=== PATIENT | female | born 1955 | race Caucasian/White ===

== ENCOUNTER 2021-08-12 13:13 | Inpatient (IN) | payer MEDICARE, SELFPAY ==
[2021-08-12] VITALS (22 sets, daily range): BP systolic 164–249; BP diastolic 80–146; PULSE 88–114; RESP 10–24; TEMP 36.3–37.2; O2SAT 97–100; BMI 21.2
--- NOTE | ~2021-08-12 | US_ITS ---
EXAMINATION: US retroperitoneal duplex ltd DATE: 08/12/2021 19:06 INDICATION: hypertension TECHNIQUE: Multiple grayscale, color Doppler, and pulsed Doppler images of the kidneys and renal sarah reji were obtained. COMPARISON: None. FINDINGS: The aorta peak systolic velocity is 117 cm/s. The right renal artery peak systolic velocity is 214 cm /s in the proximal segment, 101 cm/s in the mid segment, and 66 cm/s in the distal segment. The left renal artery peak systolic velocity is 122 cm/s in the proximal segment, 173 cm/s in the mid segment, and 54 cm/s in the distal segment. IMPRESSION: 1. Elevated peak systolic velocities in the proximal right renal artery consistent with >50-60% sten osis. Reviewed, dictated and finalized at location A. IMPRESSION: 1. Elevated peak systolic velocities in the proximal right renal artery consis tent with >50-60% stenosis.
--- NOTE | 2021-08-12 13:48 | ECG_ITS ---
Measurements Intervals [place] Rate: 102 P: 50 VT: 130 QRS: -1 QRSD: 136 T: 127 QT: 390 QTc: 509 Interpretive Statements SINUS TACHYCARDIA LEFT ATRIAL ENLARGEMENT LEFT BUNDLE BRANCH BLOCK BASELINE ARTIFACT- I, II, AVR, AVL ABNORMAL ECG Electronically Signed On 08-12-2021 14:25:28 CDT by Eduardo Donato D.O.
[2021-08-12 14:58] LABS: Basophils Percent Auto 0.4 % (0.2-1.2); Eosinophils Absolute Auto 0.3 K/mm3 (0-0.3); Eosinophils Percent Auto 3.1 % (0-4.4); Hematocrit 50.9 % (37.0-47.0); Hemoglobin 16.3 g/dL (12.0-15.0); Immature Granulocyte Absolute 0.01 K/mm3 (0.00-0.031); Immature Granulocyte Percent A 0.1 % (0-0.5); Lymphocytes Absolute Auto 1.46 K/mm3 (0.9-3.2); Lymphocytes Percent Auto 16.1 % (18.3-44.2); Mean Corpuscular Hemoglobin 30.2 pg (26-34); Mean Corpuscular Volume 94.4 fl (80-100); Mean Platelet Volume 10.8 fl (7.4-10.4); Monocytes Absolute Auto 0.9 K/mm3 (0.1-0.6); Monocytes Percent Auto 9.9 % (2.6-8.5); Neutrophils Absolute Auto 6.4 K/mm3 (1.3-6.7); Neutrophils Percent Auto 70.4 % (45.5-73.1); Platelet Count Result 211 k/mm3 (150-375); Red Blood Count 5.39 M/mm3 (4.2-5.4); Red Cell Distribution Width 12.4 % (11.5-14.5); White Blood Count 9.1 K/mm3 (4.5-10.0)
[2021-08-12 15:08] LABS: Alanine Aminotransferase 23 U/L (4-35); Albumin Level 4.6 g/dL (3.5-5.1); Alkaline Phosphatase 108 U/L (38-126); Anion Gap 7 mmol/L (8-16); Aspartate Amino Transferase 24 U/L (14-36); Bilirubin,Total 0.3 mg/dL (0.2-1.3); Blood Urea Nitrogen 13 mg/dL (7-17); Calcium 9.4 mg/dL (8.4-10.2); Carbon Dioxide 31 mmol/L (22-30); Chloride 100 mmol/L (98-107); Estimated CRCL calculation 54 ml/min; Estimated Glomerular Filt Rate > 60; Glucose 127 mg/dL (65-110); Potassium 3.6 mmol/L (3.4-5.0); Sodium 138 mmol/L (137-145)
[2021-08-12] MEDS: hydrALAZINE HCL 20 MG/ML VIAL 10 MG IV PUSH ×2 (15:21→19:22)
--- NOTE | 2021-08-12 15:25 | ED.GENADULT ---
HPI - General Adult General Chief complaint: Recheck/Abnormal Lab/Rx Stated complaint: htn Time Seen by Provider: 08/12/21 14:53 Source: patient Mode of arrival: ambulatory Limitations: no limitations History of Present Illness HPI narrative: 66-year-old female with no significant past medical history presenting to the emergency department for evaluation of high blood pressure. Patient was at her dentist office today when they noticed that she had a significantly elevated blood pressure that was in the 250/150 range. Patient had recently been at the dentist office on August 02 and had a systolic blood pressure of 110. Patient has no prior history of hypertension. Patient denies any change in medications denies any herbal supplements and denies any increased caffeine intake today. Patient is also asymptomatic with his blood pressure. Patient denies any headache, chest pain, chest tightness. Related Data Home Medications Medication Instructions Recorded Confirmed No Home Medications 08/12/21 08/12/21 Allergies Allergy/AdvReac Type Severity Reaction Status Date / Time No Known Allergies Allergy Verified 08/12/21 14:50 Review of Systems Review of Systems: CONSTITUTIONAL: Denies fever, chills, or sweats. EYES: Denies visual changes, redness, or discharge. ENT: Denies rhinorrhea, congestion, sore throat, or otalgia. CARDIOVASCULAR: Denies chest pain, palpitations, or edema. RESPIRATORY: Denies cough or dyspnea. GASTROINTESTINAL: Denies abdominal pain, nausea, vomiting, or diarrhea. GENITOURINARY: Denies dysuria or hematuria. SKIN: Denies rash or itching. MUSCULOSKELETAL: Denies back pain, joint pain, or myalgia. NEUROLOGIC: Denies headache, numbness, or weakness. Exam Narrative: APPEARANCE: Well appearing, no pain, no distress, well-nourished. HEAD: normocephalic, atraumatic. EYES: PERRLA/EOMI, conjunctivae clear. NOSE: Normal no drainage THROAT: Pharynx clear, no exudate. NECK: Supple. No adenopathy, no masses. RESPIRATORY: Airway patent, respirations nonlabored. Clear to auscultation bilaterally, no rales, rhonchi, wheezing. CARDIOVASCULAR: Regular rate and rhythm without murmurs rubs or gallops. ABDOMINAL: Soft, nontender, nondistended, normal bowel sounds MUSCULOSKELETAL: Moves all extremities. Strength/ROM intact, No edema, No calf tenderness. NEURO: Alert. Cranial nerves II through XII intact. Good gait. Good coordination SKIN: Warm, dry. Normal Color PSYCHIATRIC: Normal affect/mood. Course Course Emergency Course: Patient's blood pressure did improve with hydralazine. Case is being admitted for hypertensive urgency. Case was discussed with the hospitalist, Dr. Gaffney and patient was admitted to [facility] telemetry. Vital Signs Vital signs: Vital Signs Temperature 98.9 F 08/12/21 13:45 Pulse Rate 114 H 08/12/21 13:45 Respiratory Rate 19 08/12/21 13:45 Blood Pressure 249/146 H 08/12/21 13:45 Pulse Oximetry 99 08/12/21 13:45 Temperature 98.9 F 08/12/21 13:45 Pulse Rate 100 08/12/21 19:20 Respiratory Rate 18 08/12/21 19:20 Blood Pressure 164/106 H 08/12/21 19:20 Pulse Oximetry 98 08/12/21 19:20 Medical Decision Making Vital Signs Vital Signs: Vital Signs Temperature 98.9 F 08/12/21 13:45 Pulse Rate 114 H 08/12/21 13:45 Respiratory Rate 19 08/12/21 13:45 Blood Pressure 249/146 H 08/12/21 13:45 Pulse Oximetry 99 08/12/21 13:45 Temperature 98.9 F 08/12/21 13:45 Pulse Rate 100 08/12/21 19:20 Respiratory Rate 18 08/12/21 19:20 Blood Pressure 164/106 H 08/12/21 19:20 Pulse Oximetry 98 08/12/21 19:20 Lab Data Lab results reviewed: Yes I reviewed the patient's lab results. Result diagrams: 08/12/21 14:51 08/12/21 14:51 Labs: Lab Results 08/12/21 08/12/21 08/12/21 Range/Units 14:51 14:51 14:51 WBC 9.1 (4.5-10.0) K/mm3 RBC 5.39 (4.2-5.4) M/mm3 Hgb 16.3 H (12.0-15.0) g/dL Hct 50.9 H (37.0-4
[2021-08-12 15:38] LABS: Appearance Urine Clear (Clear); Bilirubin Urine Negative (Negative); Blood Urine Negative (Negative); Color Urine Yellow (Yellow); Glucose Urine UA Negative (Negative); Ketones Urine Negative (Negative); Leukocyte Esterase Ur Negative LEU/UL (Negative); Nitrate Urine Negative (Negative); Protein Urine Negative (Negative); Specific Grav Ur 1.015 (1.001-1.035); Urobilinogen Urine 0.2 mg/dL (<2.0); pH Urine 7.5 (5.0-9.0)
[2021-08-12 15:47] LABS: Add Urine Microscopic? NO
[2021-08-12 15:54] LABS: Troponin I 0.022 ng/mL (0.000-0.034)
[2021-08-12] MEDS: amLODIPine BESYLATE 5 MG TABLET PO (17:22)
--- NOTE | 2021-08-12 17:37 | PM.IMHP ---
H&P: HPI History of Present Illness Date/Time: 08/12/21 17:37 ED- HPI narrative: 66-year-old female with no significant past medical history presenting to the emergency department for evaluation of high blood pressure. Patient was at her dentist office today when they noticed that she had a significantly elevated blood pressure that was in the 250/150 range. Patient had recently been at the dentist office on August 02 and had a systolic blood pressure of 110. Patient has no prior history of hypertension. Patient denies any change in medications denies any herbal supplements and denies any increased caffeine intake today. Patient is also asymptomatic with his blood pressure. Patient denies any headache, chest pain, chest tightness. interval history patient seen in emergency depart and discussed with Dr. Chase, and seen the patient together, patient was given hydralazine 10 mg IV did bring her blood pressure slightly down will start the patient on amlodipine 5 mg q.day, patient remains clinically stable denies complaint of headache blurry vision chest pain or palpitation, patient does states she is anxious all the time, to further evaluate will do the cardia enzymes 1st set is negative, and no acute changes on EKG, will do the kidney ultrasound, will do cardiac echo, patient may need further workup after review of current results incoming hospitalist may decide further workup tomorrow. patient admitted as observation status Chief Complaint: hypertensive urgency Review of Systems Review of Systems: All systems reviewed & are unremarkable except as noted in HPI and below Meds Home Medications and Allergies Home Medications Medication Instructions Recorded Confirmed Type No Home Medications 08/12/21 08/12/21 History Allergies Allergy/AdvReac Type Severity Reaction Status Date / Time No Known Allergies Allergy Verified 08/12/21 14:50 Vital Signs Vital Signs - 24 hr 08/12/21 13:45 08/12/21 14:41 08/12/21 14:42 Temperature 98.9 F Pulse Rate 114 H 102 H 96 Respiratory Rate 19 14 19 Blood Pressure 249/146 H 249/116 H Pulse Oximetry 99 98 99 08/12/21 14:45 08/12/21 14:46 08/12/21 14:47 Temperature Pulse Rate 100 103 H 99 Respiratory Rate 12 10 L 22 H Blood Pressure 248/141 H Pulse Oximetry 100 98 99 08/12/21 15:01 08/12/21 15:16 08/12/21 15:17 Temperature Pulse Rate 90 88 96 Respiratory Rate 22 H 21 H 24 H Blood Pressure 218/107 H Pulse Oximetry 99 97 98 08/12/21 15:32 08/12/21 15:45 08/12/21 15:56 Temperature Pulse Rate 98 94 100 Respiratory Rate 24 H 23 H 24 H Blood Pressure 210/100 H Pulse Oximetry 100 99 98 08/12/21 16:04 08/12/21 16:19 08/12/21 16:30 Temperature Pulse Rate 97 98 94 Respiratory Rate Blood Pressure 192/86 H Pulse Oximetry 98 98 98 08/12/21 16:46 08/12/21 16:48 Temperature Pulse Rate 95 96 Respiratory Rate Blood Pressure 191/85 H Pulse Oximetry 97 98 Exam Narrative: Patient is comfortable, NAD HEENT: eyes are clear and none icteric LUNGS:CTA HEART: RR S1S2 ABD: BS+, Soft and nontender Lower extremities: no edema SKIN: nonjaundiced Neuro: grossly intact. H&P: Results Labs Labs: Short CBC 08/12/21 Range/Units 14:51 WBC 9.1 (4.5-10.0) K/mm3 Hgb 16.3 H (12.0-15.0) g/dL Hct 50.9 H (37.0-47.0) % Plt Count 211 (150-375) k/mm3 BMP 08/12/21 14:51 Sodium 138 Potassium 3.6 Chloride 100 Carbon Dioxide 31 H BUN 13 Creatinine 0.70 Glucose 127 H Calcium 9.4 Cardiac Enzymes 08/12/21 Range/Units 14:51 Troponin I 0.022 (0.000-0.034) ng/mL Liver Function 08/12/21 Range/Units 14:51 Total Bilirubin 0.3 (0.2-1.3) mg/dL AST 24 (14-36) U/L ALT 23 (4-35) U/L Alkaline Phosphatase 108 (38-126) U/L Albumin 4.6 (3.5-5.1) g/dL Urine 08/12/21 Range/Units 15:31 Urine Color Yellow (Yellow) Urine Appearance Clear (Clear) Urine pH
--- NOTE | 2021-08-12 20:15 | ADMGEN ---
This patient, Margaux Andrea, was admitted to Medical Room 346-01. Patient/family oriented to hospital policies and general routines including ID bracelet, bed and alarms, visiting hours, pain management, procedures, bathroom and other care routines, personal items, smoking policy, room service/diet, and visiting hours. Information on how to activate the Rapid Response Team has been discussed. Patient/Family are encouraged to report perceived risks to care and to ask questions if they do not understand what they are told or what they should do.
[2021-08-12] MEDS: LABETALOL HCL INJ 100 MG/20 ML VIAL 10 MG IV PUSH (21:51)
[2021-08-13] VITALS (12 sets, daily range): BP systolic 158–180; BP diastolic 69–88; PULSE 78–97; RESP 18–20; TEMP 36.6–37.4; O2SAT 96–98
--- NOTE | 2021-08-13 | ECHO_ITS ---
Patient Info Name: Margaux Andrea Age: 66 years : 1955 Gender: Female Ht: 62 in Wt: 110 lbs BSA: 1.48 m2 HR: 90 bpm BP: 158 / 69 mmHg Exam Date: 08/13/2021 10:35 AM Exam Location: [facility] Pulmonary Patient Status: Inpatient Admit Date: 08/12/2021 Staff Ordering Physician: Ish Gaffney MD Pad Hand: Didier Seay RDCS, RT Attending Provider: Ish Gaffney MD Exam Type: CA echo doppler color flow Study Info Indications I11.0 - Hypertensive heart disease with heart failure Complete two-dimensional, color flow and Doppler transthoracic echocardiogram is performed. Strain analysis performed. Summary 1. Complete two-dimensional, color flow and Doppler transthoracic echocardiogram is performed. 2. Normal LV size, mild LVH, normal LV systolic function, ejection fraction 65-70%, grade 1 diastolic dysfunction. No significant valvular abnormality. Unable to assess RVSP due to inadequate TR jet. Sinus rhythm. Left Ventricle Left ventricular chamber dimension is normal. Left ventricular systolic function is normal, estimated at 65-70%. There is mildly increased left ventricular wall thickness. Left ventricular septal wall motion is normal. The left ventricular diastolic function is grade I diastolic dysfunction. Right Ventricle Right ventricular chamber dimension is normal. Right ventricular systolic function is normal. Left Atria Left atrial chamber dimension is normal. Right Atria Right atrial chamber dimension is normal. Aortic Valve The aortic valve is normal. There is no aortic valve stenosis. There is no aortic valve regurgitation. Pulmonic Valve The pulmonic valve is not well visualized. Mitral Valve The mitral valve has normal leaflets. There is no mitral valve regurgitation. Tricuspid Valve The tricuspid valve leaflets are normal. There is no tricuspid valve regurgitation. Pericardium/Pleural The pericardium appears normal. There is no pericardial effusion. Aorta The aortic root size at the sinus of Valsalva is normal. Left Ventricular Outflow Tract Name Value Normal LVOT 2D LVOT Diameter 1.9 cm LVOT Doppler LVOT Peak Gradient 5 mmHg LVOT Mean Gradient 3 mmHg LVOT VTI 18 cm LVOT VTI/AV VTI Ratio 0.7 LVOT Stroke Volume 52 ml LVOT CO 5.2 l/min LVOT CI 3.5 l/min/m2 Mitral Valve Name Value Normal MV Doppler MV Decel Gooding 437 cm/s2 MV PHT 50 ms MV Area (PHT) 4.4 cm2 4.0-5.0 MV Diastolic Function MV E Peak Velocity 75
[2021-08-13 06:13] LABS: Basophils Absolute Auto 0.1 K/mm3 (0.0-0.1); Basophils Percent Auto 0.7 % (0.2-1.2); Eosinophils Absolute Auto 0.2 K/mm3 (0-0.3); Eosinophils Percent Auto 2.5 % (0-4.4); Hematocrit 47.3 % (37.0-47.0); Hemoglobin 15.5 g/dL (12.0-15.0); Immature Granulocyte Absolute 0.03 K/mm3 (0.00-0.031); Immature Granulocyte Percent A 0.4 % (0-0.5); Lymphocytes Percent Auto 19.7 % (18.3-44.2); Mean Corpuscular HGB Conc 32.8 g/dl (32-36); Mean Corpuscular Hemoglobin 30.5 pg (26-34); Mean Corpuscular Volume 92.9 fl (80-100); Mean Platelet Volume 11.5 fl (7.4-10.4); Monocytes Percent Auto 13.5 % (2.6-8.5); Neutrophils Absolute Auto 4.5 K/mm3 (1.3-6.7); Neutrophils Percent Auto 63.2 % (45.5-73.1); Platelet Count Result 233 k/mm3 (150-375); Red Blood Count 5.09 M/mm3 (4.2-5.4); Red Cell Distribution Width 12.5 % (11.5-14.5); White Blood Count 7.1 K/mm3 (4.5-10.0)
[2021-08-13 06:22] LABS: Alanine Aminotransferase 23 U/L (4-35); Albumin Level 4.1 g/dL (3.5-5.1); Alkaline Phosphatase 95 U/L (38-126); Anion Gap 8 mmol/L (8-16); Aspartate Amino Transferase 28 U/L (14-36); Bilirubin,Total 0.5 mg/dL (0.2-1.3); Blood Urea Nitrogen 10 mg/dL (7-17); Carbon Dioxide 30 mmol/L (22-30); Chloride 100 mmol/L (98-107); Estimated CRCL calculation 55 ml/min; Estimated Glomerular Filt Rate > 60; Glucose 110 mg/dL (65-110); Magnesium 2.2 mg/dL (1.6-2.3); Potassium 3.4 mmol/L (3.4-5.0); Sodium 138 mmol/L (137-145)
[2021-08-13] MEDS: amLODIPine BESYLATE 5 MG TABLET PO (08:06)
--- NOTE | 2021-08-13 10:59 | PM.IMPN ---
Progress Note: A&P Assessment and Plan (1) Hypertensive urgency: Code(s): I16.0 - Hypertensive urgency Status: Acute Assessment and Plan: Blood pressure improved Renal artery Doppler shows stenosis 50-60% Cardiology consult Added extra dose of amlodipine 2.5 mg today Subjective Date/time seen: 08/13/21 10:59 Interval history: 66 years old female presented to the hospital with elevated blood pressure last time patient measured her blood pressure was few years ago patient did not follow-up with her primary care physician for 4-5 years Arterial Doppler of renal arteries shows 50-60% stenosis Patient feels better today blood pressure improved Patient denies fever headache chest pain shortness of breath I am seeing the patient for hypertension Exam Narrative: Alert Chest no wheeze crackles Abdomen nontender nondistended CVS S1 + S2 Lower extremity edema Objective Data Vital Signs Vital Signs: Vital Signs - 24 hr 08/12/21 13:45 08/12/21 14:41 08/12/21 14:42 Temperature 98.9 F Pulse Rate 114 H 102 H 96 Respiratory Rate 19 14 19 Blood Pressure 249/146 H 249/116 H Pulse Oximetry 99 98 99 08/12/21 14:45 08/12/21 14:46 08/12/21 14:47 Temperature Pulse Rate 100 103 H 99 Respiratory Rate 12 10 L 22 H Blood Pressure 248/141 H Pulse Oximetry 100 98 99 08/12/21 15:01 08/12/21 15:16 08/12/21 15:17 Temperature Pulse Rate 90 88 96 Respiratory Rate 22 H 21 H 24 H Blood Pressure 218/107 H Pulse Oximetry 99 97 98 08/12/21 15:32 08/12/21 15:45 08/12/21 15:56 Temperature Pulse Rate 98 94 100 Respiratory Rate 24 H 23 H 24 H Blood Pressure 210/100 H Pulse Oximetry 100 99 98 08/12/21 16:04 08/12/21 16:19 08/12/21 16:30 Temperature Pulse Rate 97 98 94 Respiratory Rate Blood Pressure 192/86 H Pulse Oximetry 98 98 98 08/12/21 16:46 08/12/21 16:48 08/12/21 17:34 Temperature Pulse Rate 95 96 106 H Respiratory Rate 16 Blood Pressure 191/85 H 198/90 H Pulse Oximetry 97 98 99 08/12/21 19:20 08/12/21 20:00 08/12/21 20:23 Temperature 97.4 F L Pulse Rate 100 94 102 H Respiratory Rate 18 18 Blood Pressure 164/106 H 182/80 H Pulse Oximetry 98 100 08/12/21 21:51 08/13/21 00:00 08/13/21 01:45 Temperature Pulse Rate 102 H 87 Respiratory Rate Blood Pressure 170/78 H Pulse Oximetry 08/13/21 04:00 08/13/21 04:21 08/13/21 08:00 Temperature 99.3 F Pulse Rate 88 85 97 Respiratory Rate 18 Blood Pressure 158/69 H Pulse Oximetry 96 96 Intake/Output Intake/Output: Intake & Output 08/10/21 08/11/21 08/12/21 08/13/21 23:59 23:59 23:59 23:59 Intake Total 660 Output Total 650 Balance 10 Meds/Results Medications: Active Medications Generic Name Dose Route Start Last Admin Trade Name Freq PRN Reason Stop Dose Admin Amlodipine Besylate 5 mg 08/13/21 09:00 08/13/21 08:06 Amlodipine Besylate 5 Mg Tablet PO 5 mg QAM KAYLI Administration Hydralazine HCl 10 mg 08/12/21 17:47 Hydralazine 10 Mg Tablet PO QID PRN Blood Pressure - High keep Labetalol HCl 10 mg 08/12/21 21:32 08/12/21 21:51 Labetalol Hcl Inj 100 Mg/20 Ml Vial IV PUSH 10 mg Q6HR PRN Administration Hypertension Miscellaneous Information 0 each 08/12/21 00:01 Clarify What Bp Is High Requiring Po Apresoline To Be Given XX 09/11/21 00:00 CLARIFY KAYLI Perflutren Lipid Microsphere 0 ml 08/12/21 17:44 Perflutren Lipid Microspheres 1.5 Ml Vial Diluted To 10 Ml Total Volume IV PUSH ONCE PRN adequate visualization Protocol Radiology Results: ITS Impressions Arterial/Peripheral Duplex 08/13/21 06:47 IMPRESSION: 1. Elevated peak systolic velocities in the proximal right renal artery consistent with >50-60% stenosis. Labs Labs: Laboratory Results - last 24 hr 08/12/21 08/12/21 08/12/21 14:51 14:51 14:51 WBC 9.1 RBC 5.39 Hgb 16.3 H Hct 5
[2021-08-13] MEDS: amLODIPine BESYLATE 2.5 MG TABLET PO (11:24)
[2021-08-13 14:30] LABS: Cortisol Random 7.92 ug/dL
--- NOTE | 2021-08-13 15:07 | PM.CNCAR ---
Assessment and Plan Assessment and plan (1) Hypokalemia: Code(s): E87.6 - Hypokalemia Status: Acute Assessment and Plan: May be related to hyperaldosterone state. Check a renin/aldosterone levels /ratio KCL 40 mg p.o. x1 (2) Renal artery stenosis: Code(s): I70.1 - Atherosclerosis of renal artery Status: Acute Assessment and Plan: she has unilateral renal artery stenosis which does not appear to be obstructive. Typically speaking, unilateral renal artery stenosis does not cause significantly high blood pressure. It needs to be bilateral to cause secondary hypertension. Because the renal artery stenosis, low-dose aspirin would be advised. Statin would also be advised this could be added as an outpatient. No intervention needed (3) Hypertensive urgency: Code(s): I16.0 - Hypertensive urgency Status: Acute Assessment and Plan: Continue amlodipine. Will add carvedilol 3.125 mg p.o. b.i.d.. As long as her blood pressure is reasonably controlled and she remains asymptomatic, she can go home today and follow up with me in the office in 1-2 weeks. Home blood pressure monitoring is encouraged and her is at bedside who understands these recommendations. She also has an appointment to see Dr. Musa in 1 week (4) Former smoker: Code(s): Z87.891 - Personal history of nicotine dependence Status: Acute Assessment and Plan: continue to avoid History of Present Illness History of Present Illness Consult date/time: 08/13/21 15:07 Requesting physician: Mazin Bland M.A., MD Consult reason: hypertension and Other (Renal artery stenosis) Reason For Visit: HTN urgency Narrative: requesting provider: Dr. Bland Date of service 08/13/2021 Reason consultation: Hypertensive urgency, renal artery stenosis History: Patient is a 66-year-old female who does not have a primary care provider. She is not routinely seen a doctor since around 2007. She does not carry a any specific diagnoses. She does not take medications except for p.r.n. Aleve. She was at the dentist yesterday and her blood pressure was 250/150. She was asymptomatic because of her markedly elevated blood pressure was told to go to the emergency department further workup evaluation and treatment. She was started on amlodipine and was given IV medications including hydralazine and labetalol. IV labetalol did drop her blood pressure nicely. She denies any chest pain, shortness of breath, syncope, presyncope, paroxysmal nocturnal dyspnea, orthopnea, edema or palpitations. The process of workup, she had a bilateral ultrasound which showed a modest stenosis of the right renal artery and no obstructive disease in the left renal artery Review of Systems Review of Systems: All systems reviewed & are unremarkable except as noted in HPI and below Constitutional: Constitutional: Denies weakness Eyes: Eyes: Denies blurry vision ENT: Reports Normal hearing present Cardiovascular: Cardiovascular: Denies chest pain Respiratory: Respiratory: Denies dyspnea Gastrointestinal: Gastrointestinal: Denies abdominal pain Genitourinary: Genitourinary: Denies flank pain Musculoskeletal: Musculoskeletal: Denies neck pain Integumentary/Breasts: Skin/Breast: Denies dry skin Neurologic: Denies headache(s) Psychiatric: Psychiatric: Denies anxiety Endocrine: Endocrine: Denies excessive sweating Hematologic/Lymphatic: Hematologic/Lymphatic: Denies easy bleeding Allergic/Immunologic: Allergic/Immunologic: Denies GI upset with certain foods PMFSH Past Medical History Medical History (Updated 08/13/21 @ 15:12 by Sanya Del Angel MD) Former smoker Renal artery stenosis Family History Family History (Updated 08/13/21 @ 15:10 by Sanya Del Angel MD) Mother Alzheimer's dementia Social History Social History Smoking packs per day: 1 Smoking cigarettes per day:
[2021-08-13] MEDS: POTASSIUM CHLORIDE 20 MEQ TABLET 40 MEQ PO (16:31)
[2021-08-13] MEDS: carvediloL 3.125 MG TABLET PO ×2 (16:32→21:14)
[2021-08-14] VITALS (8 sets, daily range): BP systolic 182–188; BP diastolic 90–98; PULSE 79–85; RESP 16; TEMP 37; O2SAT 95
[2021-08-14 06:19] LABS: Basophils Percent Auto 0.7 % (0.2-1.2); Eosinophils Absolute Auto 0.4 K/mm3 (0-0.3); Eosinophils Percent Auto 6.4 % (0-4.4); Hematocrit 49.2 % (37.0-47.0); Hemoglobin 15.2 g/dL (12.0-15.0); Immature Granulocyte Absolute 0.02 K/mm3 (0.00-0.031); Immature Granulocyte Percent A 0.3 % (0-0.5); Lymphocytes Absolute Auto 1.97 K/mm3 (0.9-3.2); Mean Corpuscular HGB Conc 30.9 g/dl (32-36); Mean Platelet Volume 11.4 fl (7.4-10.4); Monocytes Absolute Auto 0.9 K/mm3 (0.1-0.6); Monocytes Percent Auto 16.1 % (2.6-8.5); Neutrophils Absolute Auto 2.5 K/mm3 (1.3-6.7); Neutrophils Percent Auto 42.5 % (45.5-73.1); Platelet Count Result 235 k/mm3 (150-375); Red Blood Count 5.07 M/mm3 (4.2-5.4); Red Cell Distribution Width 12.8 % (11.5-14.5); White Blood Count 5.8 K/mm3 (4.5-10.0)
[2021-08-14 06:33] LABS: Alanine Aminotransferase 22 U/L (4-35); Albumin Level 3.8 g/dL (3.5-5.1); Alkaline Phosphatase 81 U/L (38-126); Anion Gap 3 mmol/L (8-16); Aspartate Amino Transferase 24 U/L (14-36); Bilirubin,Total 0.4 mg/dL (0.2-1.3); Blood Urea Nitrogen 14 mg/dL (7-17); Calcium 9.2 mg/dL (8.4-10.2); Carbon Dioxide 31 mmol/L (22-30); Chloride 103 mmol/L (98-107); Estimated CRCL calculation 43 ml/min; Estimated Glomerular Filt Rate > 60; Glucose 100 mg/dL (65-110); Potassium 3.8 mmol/L (3.4-5.0); Sodium 137 mmol/L (137-145)
[2021-08-14] MEDS: carvediloL 3.125 MG TABLET PO ×2 (08:40→11:54)
[2021-08-14] MEDS: amLODIPine BESYLATE 5 MG TABLET PO ×2 (08:40→12:51)
--- NOTE | 2021-08-14 09:49 | PM.PNCARD ---
Progress Note: A&P Assessment and Plan (1) Hypokalemia: Code(s): E87.6 - Hypokalemia Status: Acute Assessment and Plan: Replaced (2) Renal artery stenosis: Code(s): I70.1 - Atherosclerosis of renal artery Status: Acute Assessment and Plan: she has unilateral renal artery stenosis which does not appear to be obstructive. Typically speaking, unilateral renal artery stenosis does not cause significantly high blood pressure. It needs to be bilateral to cause secondary hypertension. Because the renal artery stenosis, low-dose aspirin would be advised. Statin would also be advised this could be added as an outpatient. No intervention needed (3) Hypertensive urgency: Code(s): I16.0 - Hypertensive urgency Status: Acute Assessment and Plan: Continue amlodipine. Will increase carvedilol as 6.25 mg p.o. b.i.d.. As long as her blood pressure is reasonably controlled and she remains asymptomatic, she can go home today and follow up with me in the office in 1-2 weeks. Home blood pressure monitoring is encouraged and her is at bedside who understands these recommendations. She also has an appointment to see Dr. Musa in 1 week (4) Former smoker: Code(s): Z87.891 - Personal history of nicotine dependence Status: Acute Assessment and Plan: continue to avoid Subjective Date/time seen: 08/14/21 09:49 Interval history: 66 years old female presented to the hospital with elevated blood pressure last time patient measured her blood pressure was few years ago patient did not follow-up with her primary care physician for 4-5 years Arterial Doppler of renal arteries shows 50-60% stenosis Date of service 08/14/2021: She wants to go home. No chest pain. No shortness of breath. Feels good. Review of Systems Review of Systems: All systems reviewed & are unremarkable except as noted in HPI and below Constitutional: Constitutional: Denies excessive sweating, Denies headache(s) and Denies weakness Eyes: Eyes: Denies blurry vision ENT: Reports Normal hearing present, Denies headache(s) and Denies neck pain Cardiovascular: Cardiovascular: Denies chest pain and Denies dyspnea Respiratory: Respiratory: Denies dyspnea Gastrointestinal: Gastrointestinal: Denies abdominal pain Genitourinary: Genitourinary: Denies flank pain Musculoskeletal: Musculoskeletal: Denies neck pain Integumentary/Breasts: Skin/Breast: Denies dry skin Neurologic: Reports Normal hearing present, Denies headache(s) and Denies weakness Psychiatric: Psychiatric: Denies anxiety Endocrine: Endocrine: Denies excessive sweating Hematologic/Lymphatic: Hematologic/Lymphatic: Denies easy bleeding Allergic/Immunologic: Allergic/Immunologic: Denies GI upset with certain foods Exam Narrative: awake alert oriented. Appears to be in no acute distress although she is anxious and tearful because she wants to go home. appears stated age Const: General: comfortable and no acute distress HENMT: General nose exam: Normal nares present Eyes: Sclera: sclerae normal Neck: Neck: supple and no JVD Chest: Other: no reproducible chest wall pain to palpation Resp: Effort & Inspection: normal respiratory effort Cardio: Rate: regular rate Rhythm: regular rhythm GI: Inspection: non-distended Auscultation: normal bowel sounds Skin: General skin exam: normal color Neuro: Cranial nerves: Yes Normal hearing present Cognition (Neuro): normal cognition Speech: normal speech Extrem: General: normal to inspection Psych: Mental Status: mental status grossly normal Objective Data Vital Signs Vital Signs: Vital Signs - 24 hr 08/13/21 12:00 08/13/21 14:00 08/13/21 16:00 Temperature 36.6 C Pulse Rate 91 94 84 Respiratory Rate 20 Blood Pressure 180/82 H Pulse Oximetry 97 08/13/21 16:32 08/13/21 20:00 08/13/21 21:09 Temperature 36.7 C Pulse Rate 7
[2021-08-14] MEDS: HYDROcodone/acetaminophen (*CRX) 5-325 MG TABLET 1 TAB PO (10:06)
--- NOTE | 2021-08-14 10:42 | PM.DS ---
DS: Admitting Diagnosis Discharge Date 08/14/2021 Admitting Diagnosis Hypertensive urgency DS: Discharge Diagnosis Discharge Diagnosis (1) Hypertensive urgency: Code(s): I16.0 - Hypertensive urgency Status: Acute Assessment and Plan: Blood pressure improved Renal artery Doppler shows unilateral renal artery stenosis 50-60% Cardiology consult Patient presented with hypokalemia concern for hyper aldosteronism workup pending follow-up with cardiology and PCP as outpatient Started on amlodipine Coreg p.r.n. hydralazine Cardiology recommendation appreciated Patient is adamant about leaving the hospital today Aspirin and statin will be addressed as outpatient was blood pressure is better controlled follow-up with cardiology as outpatient DS: Summary Hospital Course Hospital Course: Patient presented to the hospital with elevated blood pressure was found to have hypertensive urgency cardiology was consulted patient has mild hypokalemia workup for hyper aldosteronism is pending patient is adamant about leaving the hospital today patient aware that blood pressure still uncontrolled but patient is adamant about leaving the hospital Unilateral renal artery stenosis according to the Cardiology unlikely to be the if urology of hypertension continue to monitor follow-up with cardiology as outpatient avoid ARSALAN-inhibitor/arb pending cardiology follow-up as outpatient Time Spent with Patient Time attestation: Total time spent providing and/or coordinating discharge services: Exam Narrative: Alert Chest no wheeze crackles Abdomen nontender nondistended CVS S1 + S2 Lower extremity edema DS: Data Data Completed and Pending Labs on day of discharge: Labs from last 24 hours 08/14/21 08/14/21 08/13/21 05:34 05:33 15:35 WBC 5.8 RBC 5.07 Hgb 15.2 H Hct 49.2 H MCV 97.0 MCH 30.0 MCHC 30.9 L RDW 12.8 Plt Count 235 MPV 11.4 H Immature Gran % (Auto) 0.3 Neut % (Auto) 42.5 L Lymph % (Auto) 34.0 [place] % (Auto) 16.1 H Eos % (Auto) 6.4 H Baso % (Auto) 0.7 Lymph # (Auto) 1.97 [place] # (Auto) 0.9 H Eos # (Auto) 0.4 H Baso # (Auto) 0.0 Abs Immat Gran (auto) 0.02 Absolute Neuts (auto) 2.5 Absolute Nucleated RBC 0.0 Nucleated RBC % 0.0 Sodium 137 Potassium 3.8 Chloride 103 Carbon Dioxide 31 H Anion Gap 3 L BUN 14 Creatinine 0.90 Estim Creat Clear Calc 43 Estimated GFR > 60 Glucose 100 Calcium 9.2 Total Bilirubin 0.4 AST 24 ALT 22 Alkaline Phosphatase 81 Total Protein 7.0 Albumin 3.8 Renin Pending Aldosterone TSH (Reflex) Random Cortisol 08/13/21 08/13/21 08/12/21 15:35 05:15 14:51 WBC RBC Hgb Hct MCV MCH MCHC RDW Plt Count MPV Immature Gran % (Auto) Neut % (Auto) Lymph % (Auto) [place] % (Auto) Eos % (Auto) Baso % (Auto) Lymph # (Auto) [place] # (Auto) Eos # (Auto) Baso # (Auto) Abs Immat Gran (auto) Absolute Neuts (auto) Absolute Nucleated RBC Nucleated RBC % Sodium Potassium Chloride Carbon Dioxide Anion Gap BUN Creatinine Estim Creat Clear Calc Estimated GFR Glucose Calcium Total Bilirubin AST ALT Alkaline Phosphatase Total Protein Albumin Renin Aldosterone Pending TSH (Reflex) 2.730 Random Cortisol 7.92 Discharge Plan Discharge Attending physician on discharge: Mazin Bland M.A. Consulting providers: Sid Reinoso ; Jasmin Yuen Discharging Clinician: Mazin Bland M.A. Patient Disposition: Home, Self-Care Activity: as tolerated Diet: heart healthy Patient Instructions: Antibiotic Form Stand Alone Forms: General Discharge Information Follow-up/Referrals: Sid Reinoso MD [Physician] - PHYSICIAN,BINDERY CUTTER OPERATOR [Primary Care Provider] - Jasmin Yuen MD [
[2021-08-20 13:19] LABS: Renin 0.83 ng/mL/h (0.25-5.82)
== END 2021-08-14 15:00 | disposition home or self-care (01) | DRG 305 ==
LOC: ANHED 15:16 → ANH3MED 18:12
PROVIDERS: Internal Medicine Cardiovascular Disease; Admitting Provider Family Medicine; Emergency Provider Emergency Medicine; Visit Provider Internal Medicine
DX: I16.0 Hypertensive urgency (principal); E87.6 Hypokalemia; I70.1 Atherosclerosis of renal artery; Z87.891 Personal history of nicotine dependence
CPT/HCPCS: 36415; 80053; 81003; 82088; 82533; 83735; 84244; 84443; 84484; 85025; 93005; 93306; 93976; 96374; 96375; 96376; 99285; A9270; G0378; J0360

== ENCOUNTER 2021-10-04 15:21 | Outpatient (CLI) | payer MEDICARE, SELFPAY ==
--- NOTE | ~2021-10-04 | XR_ITS ---
XR thoracic spine 3V DATE: 10/04/2021 15:47 INDICATION: Thoracic back pain TECHNIQUE: AP, lateral and swimmer views COMPARISON: None FINDINGS: Prominent degenerative disc disease at C4-5 and C5-C6. Mild anterolisthesis at C6-7. Osteopenia. There is mild dextroscoliosis of the thoracolumbar spine. There is mild degenerative spurring of the thoracic spine, most prominent at T11-12. The thoracic pedicles are intact. No thoracic vertebral fracture or bone destruction is evident. No p araspinal soft tissue thickening. IMPRESSION: Osteopenia Mild thoracolumbar dextroscoliosis Mild degenerative spurring of the thoracic spine Reviewed, dictated and finalized at location A.
--- NOTE | ~2021-10-04 | XR_ITS ---
XR lumbar spine 2-3V DATE: 10/04/2021 15:47 INDICATION: Low back pain TECHNIQUE: AP, lateral, coned lateral lumbosacral views COMPARISON: None FINDINGS: There is osteopenia. There is mild levoscoliosis of the lumbar spine. Mild to moderate degenerative disc disease at L1-2. Lumbar and lumbosacral interspaces are relatively well preserved otherwise. Minimal degenerative spurring at L2-3, L3-4 and L4-5. No fracture or bone destruction or spondylolisthesis. The lumbar pedicles are intact. The sacral elmer c joints appear normal. IMPRESSION: Osteopenia Mild levoscoliosis Moderate moderate degenerative disc disease at L1 to and minimal degenerative disc disease at the rem aining lumbar interspaces Reviewed, dictated and finalized at location A. IMPRESSION: Osteopenia Mild levoscoliosis Moderate moderate degenerative disc disease at L1 to and minimal degenerative d isc disease at the remaining lumbar interspaces
== END 2021-10-04 15:22 | disposition home or self-care (01) ==
PROVIDERS: PCP Family Medicine; Visit Provider Family Medicine
DX: M53.3 Sacrococcygeal disorders, not elsewhere classified (principal); M54.50 Low back pain, unspecified; M85.88 Other specified disorders of bone density and structure, other site; M41.86 Other forms of scoliosis, lumbar region; M51.36 Other intervertebral disc degeneration, lumbar region; M41.84 Other forms of scoliosis, thoracic region; M77.8 Other enthesopathies, not elsewhere classified
CPT/HCPCS: 72072; 72100

== ENCOUNTER 2023-09-22 09:28 | Day surgery (SDC) | payer MEDICARE, SELFPAY ==
[2023-09-02 14:10] VITALS: BMI 22.8
[2023-09-11 12:53] VITALS: BMI 22.1
--- NOTE | 2023-09-15 11:14 | PM.HPGS ---
History of Present Illness History of Present Illness Consent: Risks, benefits, and alternatives have been discussed and questions answered. Patient agrees to proceed with procedure. Chief complaint: Neoplasm screening Narrative: Margaux Andrea is a 68 year old female referred for colon cancer screening. This is her 1st colonoscopy. Review of Systems Review of Systems: All systems reviewed & are unremarkable except as noted in HPI and below PMFSH Past Medical History Medical History Colon cancer screening Former smoker HTN (hypertension) Hyperlipidemia Renal artery stenosis Evidence of renal artery stenosis on ultrasound. Follow-up CT angiogram revealed no evidence of renal artery stenosis in either artery. Vascular surgeon said no need for follow-up at this time. Screening mammogram for breast cancer Seasonal allergic rhinitis Family History Family History Mother Alzheimer's dementia Social History Social History Social History: Smoking packs per day: 0.5 Smoking cigarettes per day: 10.0 Years smoked: 2 Smoking pack-years: 1.00 Smoking status: Light tobacco smoker Tobacco type: cigarettes Second hand tobacco smoke exposure: Yes Additional smoking assessment comments: PT STATES SHE SMOKED SOCIALLY A YOUNG ADULT. Alcohol intake: current Drinks per week: 0 Alcohol use details: RARE GLASS OF WINE Substance use: never Substance use type: does not use Lack of Transportation: No Lack of Food: Never True Current Housing: I Have Housing Concerned About Future Housing: No Difficulty Paying Gas/Electric Bills: No Difficulty Paying for Meds: No Currently Unemployed: No Education: Bachelor's Degree Difficulty w/ Childcare or Family Care: No Living arrangements: with family Occupation/Education: retired Gender identity (if verbalized by the patient): Female Sexual Orientation (if Verbalized by the Patient): Straight or Heterosexual Spiritual care concerns: No Meds Home Medications and Allergies Home Medications Medication Instructions Recorded Confirmed Type amlodipine 5 mg tablet 5 mg PO DAILY #90 tabs 02/03/22 09/11/23 Rx ascorbic acid (vitamin C) 1 tab-cap PO DAILY 09/19/22 09/11/23 History carvedilol 6.25 mg tablet 6.25 mg PO Q12H 09/19/22 09/11/23 History cholecalciferol (vitamin D3) 1 tab-cap PO DAILY 09/19/22 09/11/23 History azelastine 205.5 mcg (0.15 %) 1 - 2 spray intranasal DAILY PRN 03/17/23 09/11/23 History nasal spray (Astepro Allergy) ALLERGIES aspirin 325 mg tablet 325 mg PO BID PRN Headache 09/11/23 09/22/23 History Allergies Allergy/AdvReac Type Severity Reaction Status Date / Time No Known Allergies Allergy Verified 09/22/23 10:13 Exam Const: General: alert Orientation/consciousness: patient oriented x3 Resp: Auscultation: clear to auscultation bilaterally Cardio: Rhythm: regular rhythm GI: GI Palp: Yes Soft to palpation and No Tenderness to palpation present (GI) Neuro: General: patient oriented x3 Assessment and Plan Assessment and plan (1) Colon cancer screening: Code(s): Z12.11 - Encounter for screening for malignant neoplasm of colon Status: Acute Assessment and Plan: Colonoscopy with possible biopsy or polypectomy or cautery or injection of substances.
[2023-09-22 10:22] VITALS: BP 148/89; PULSE 66; RESP 18; TEMP 36.4; O2SAT 98; BMI 22.6
[2023-09-22] MEDS: LACTATED RINGERS 1,000 ML 150 ML IV CONT (10:33)
--- NOTE | 2023-09-22 10:40 | WPDANESEPPF ---
Anes - Initial Pre Proc Eval Procedure: Operation Date: 09/22/23 11:00 Proposed Procedures p Screening Colonoscopy - Abdulkadir Tavarez MD Date/Time: 09/22/23 10:40 Surgeon: Abdulkadir Tavarez MD Pre Op Diagnosis: Neoplasm screening Patient Data Age: 68 Gender: F Height: 1.57 m Weight: 56 kg Last Vital Signs Temp 36.4 C L 09/22/23 10:22 Pulse 66 09/22/23 10:22 Resp 18 09/22/23 10:22 BP 148/89 H 09/22/23 10:22 Pulse Ox 98 09/22/23 10:22 O2 Del Method Room Air 09/22/23 10:22 Allergies Allergy/AdvReac Type Severity Reaction Status Date / Time No Known Allergies Allergy Verified 09/22/23 10:13 Home Medications Medication Instructions Recorded Confirmed Type amlodipine 5 mg tablet 5 mg PO DAILY #90 tabs 02/03/22 09/11/23 Rx ascorbic acid (vitamin C) 1 tab-cap PO DAILY 09/19/22 09/11/23 History carvedilol 6.25 mg tablet 6.25 mg PO Q12H 09/19/22 09/11/23 History cholecalciferol (vitamin D3) 1 tab-cap PO DAILY 09/19/22 09/11/23 History azelastine 205.5 mcg (0.15 %) 1 - 2 spray intranasal DAILY PRN 03/17/23 09/11/23 History nasal spray (Astepro Allergy) ALLERGIES aspirin 325 mg tablet 325 mg PO BID PRN Headache 09/11/23 09/22/23 History Patient hx anesthesia problems: none Family hx anesthesia problems: none Results Review: All pre-operative results and documents have been reviewed as part of the pre-operative evaluation. [facility] Past Medical History Medical History Colon cancer screening Former smoker HTN (hypertension) Hyperlipidemia Renal artery stenosis Evidence of renal artery stenosis on ultrasound. Follow-up CT angiogram revealed no evidence of renal artery stenosis in either artery. Vascular surgeon said no need for follow-up at this time. Screening mammogram for breast cancer Seasonal allergic rhinitis Family History Family History Mother Alzheimer's dementia Social History Social History Social History: Smoking packs per day: 0.5 Smoking cigarettes per day: 10.0 Years smoked: 2 Smoking pack-years: 1.00 Smoking status: Light tobacco smoker Tobacco type: cigarettes Second hand tobacco smoke exposure: Yes Additional smoking assessment comments: PT STATES SHE SMOKED SOCIALLY A YOUNG ADULT. Alcohol intake: current Drinks per week: 0 Alcohol use details: RARE GLASS OF WINE Substance use: never Substance use type: does not use Lack of Transportation: No Lack of Food: Never True Current Housing: I Have Housing Concerned About Future Housing: No Difficulty Paying Gas/Electric Bills: No Difficulty Paying for Meds: No Currently Unemployed: No Education: Bachelor's Degree Difficulty w/ Childcare or Family Care: No Living arrangements: with family Occupation/Education: retired Gender identity (if verbalized by the patient): Female Sexual Orientation (if Verbalized by the Patient): Straight or Heterosexual Spiritual care concerns: No Anes - Eval Final PreProcedure Day of Procedure 09/22/23 10:40 Patient weight: normal Heart: regular rate and rhythm Lungs: clear to auscultation Airway: Mallampati scale class II Neurological: alert and oriented Last oral intake: >/= 8 hours ASA classification: II Emergent: no Anesthetic plan: proceed Anesthesia type and monitoring: general GIVS and standard monitoring Results Review: All pre-operative results and documents have been reviewed as part of the pre-operative evaluation. Informed Consent: The patient's anesthetic plan and its attendant risks and benefits were discussed with the patient/family/POA. Questions were solicited and answers provided to the satisfaction of the patient/family/POA.
[2023-09-22 11:20] VITALS: BP 93/53; PULSE 70; RESP 15; O2SAT 91
[2023-09-22 11:30] VITALS: BP 101/67; PULSE 71; RESP 15; O2SAT 100
[2023-09-22 11:40] VITALS: BP 137/74; PULSE 71; RESP 15; O2SAT 99
--- NOTE | 2023-09-22 11:42 | WPDANESPN ---
Anes - Prog Note Post-Op Date/Time: 09/22/23 11:42 Cardiovascular status: normal Respiratory status: normal Airway patency: baseline Mental status: baseline Post-Op hydration status: normal Vital Signs: Last Vital Signs Temp 36.4 C L 09/22/23 10:22 Pulse 66 09/22/23 10:22 Resp 18 09/22/23 10:22 BP 148/89 H 09/22/23 10:22 Pulse Ox 98 09/22/23 10:22 O2 Del Method Room Air 09/22/23 10:22 Pain Score (VAS): 0/10 I/O: Intake & Output 09/21/23 09/22/23 09/22/23 23:59 07:59 15:59 Intake Total 300 Balance 300 Patient Feedback: Patient satisfied with anesthetic care.
--- NOTE | 2023-09-22 11:52 | SUR.PHASEII ---
Patient with dry hacking cough since arrival in phase 2--dr. Fajardo aware- no further orders
== END 2023-09-22 12:10 | disposition home or self-care (01) ==
PROVIDERS: PCP Nurse Practitioner Family; Visit Provider Internal Medicine Gastroenterology
PROC: 0DJD8ZZ Inspection of Lower Intestinal Tract, Via Natural or Artificial Opening Endoscopic (ICD-10-PCS; CPT 45378; principal; 2023-09-22 11:00)
DX: Z12.11 Encounter for screening for malignant neoplasm of colon (principal); K64.8 Other hemorrhoids
CPT/HCPCS: G0121

== ENCOUNTER 2024-12-22 12:33 | Outpatient (CLI) | payer MEDICARE, SELFPAY ==
--- NOTE | ~2024-12-22 | MM_ITS ---
EXAMINATION: screening [facility] BI w krystal INDICATION: Asymptomatic, referred for screening mammogram COMPARISON: None available TECHNIQUE: Digital Breast Tomosynthesis CC, MLO views of Both breasts were obtained with computer-aided detection to assist in interpretation of the study. FINDINGS: There are scattered areas of fibroglandular density. There is an asymmetry seen on the MLO view in the retroareolar central right breast at posterior third. There is an asymmetry seen on the MLO view in the Superior right breast at anterior third. There is a mass in the superior lateral left breast at posterior third. Elsewhere, there are no mammographic features of malignancy. IMPRESSION: 1. Right breast asymmetries. 2. Left breast mass. RECOMMENDATION: Right breast Diagnostic mammogram with true lateral, appropriate spot compression views and an ultrasound if needed. Left breast ultrasound BI-RADS Category 0: Incomplete: Needs additional imaging evaluation. Reviewed, dictated and finalized at location B. IMPRESSION: 1. Right breast asymmetries. 2. Left breast mass. RECOMMENDATION: Right breast Diagnostic mammogram with true lateral, appropriate spot compressi on views and an ultrasound if needed. Left breast ultrasound BI-RADS Category 0: Incomplete: Needs additional imaging evaluation.
== END 2024-12-22 12:34 | disposition home or self-care (01) ==
LOC: MICIMG 12:34
PROVIDERS: PCP Nurse Practitioner Family; Visit Provider Nurse Practitioner Family
DX: Z12.31 Encounter for screening mammogram for malignant neoplasm of breast (principal); R92.8 Other abnormal and inconclusive findings on diagnostic imaging of breast
CPT/HCPCS: 77063; 77067

== ENCOUNTER 2025-01-27 13:36 | Outpatient (CLI) | payer MEDICARE, SELFPAY ==
--- NOTE | ~2025-01-27 | MMUS_ITS ---
EXAMINATION: US breast BI limited, MM diagnostic [place] RT w krystal HISTORY: Inconclusive mammogram TECHNIQUE: [Additional images of the right breast]] were performed using full field digital mammography. 3-D tomosynthesis were also obtained and synthetic 2- D images were generated. CAD analysis was submitted and interpreted. High- resolution right breast ultrasound was performed.] ] COMPARISON: Mammogram 12/22/2024 BREAST PARENCHYMAL COMPOSITION: There are scattered areas of fibroglandular density. FINDINGS: MAMMOGRAPHIC FINDINGS: Redemonstration of the asymmetry in the right retroareolar region. No convincing sonographic correlate.The finding is probably benign. ULTRASOUND: There is a 1.2 x 0.5 x 0.3 cm hypoechoic mass in the right breast at the 9:00 position 7 cm from the nipple. Margins are well-circumscribed. Small amount of internal color Doppler flow. No posterior acoustic shadowing. Possible intramammary lymph node. The finding is probably benign. There is a 5 x 7 x 3 mm hypoechoic mass in the right breast at the 12:00 position, 2 cm from the nipple. The finding is wider than tall. No internal blood flow. No posterior acoustic shadowing. The finding is probably benign. There is a 3 x 4 x 5 mm hypoechoic mass in the left breast at the 2:00 position, 8 cm from the nipple. Margins are well-circumscribed. No internal color Doppler flow. No posterior acoustic shadowing. The finding probably corresponds with the mammographic mass identified in the mammogram from 12/22/2024. IMPRESSION/RECOMMENDATION: 1. Probably benign findings in both breasts. A bilateral diagnostic mammogram and a bilateral diagnostic breast ultrasound in 6 months is recommended. BI-RADS 3-Probably benign-Short interval follow-up suggested. Reviewed, dictated and finalized at location Q. IMPRESSION/RECOMMENDATION: 1. Probably benign findings in both breasts. A bilateral diagnostic mammogram a nd a bilateral diagnostic breast ultrasound in 6 months is recommended. BI-RADS 3-Probably benign-Short interval follow-up suggested. IMPRESSION/RECOMMENDATION: 1. Probably benign findings in both breasts. A bilateral diagnostic mammogram a nd a bilateral diagnostic breast ultrasound in 6 months is recommended. BI-RADS 3-Probably benign-Short interval follow-up suggested.
== END 2025-01-27 13:37 | disposition home or self-care (01) ==
LOC: ANHFOHIMG 13:38
PROVIDERS: PCP Nurse Practitioner Family; Visit Provider Nurse Practitioner Family
DX: R92.8 Other abnormal and inconclusive findings on diagnostic imaging of breast (principal)
CPT/HCPCS: 76642; 77061; 77065; G0279